=== PATIENT | female | born 1980 | race American Indian/Alaskan Native ===

== ENCOUNTER 2018-06-22 10:06 | Emergency (ER) | payer BC, OTHER ==
[2018-06-22 10:23] VITALS: BP 117/87
[2018-06-22] MEDS ORDERED: FLEXERIL PO ONE (10:46)
[2018-06-22] MEDS ORDERED: IBUPROFEN PO ONE (10:46)
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
== END 2018-06-22 11:23 | disposition home or self-care (01) ==
LOC: ED 10:06
DX: M54.2 Cervicalgia (principal); V89.2XXA Person injured in unspecified motor-vehicle accident, traffic, initial encounter; Y93.89 Activity, other specified; Y99.8 Other external cause status; Y92.410 Unspecified street and highway as the place of occurrence of the external cause
CPT/HCPCS: 99282